=== PATIENT | female | born 1970 | race Caucasian/White ===

== ENCOUNTER 2017-09-30 14:11 | Inpatient (IN) | payer SELFPAY ==
[~2017-09-30] VITALS: Ht 157.5 cm; Wt 98.1 kg
[~2017-09-30 14:11] MED LIST: ALPRAZOLAM0.25 MG PO; AMLODIPINE BESYL5 MG PO; ASPIR 8181 MG PO; ATORVASTATIN CA20 MG PO; BUPROPION HCL75 MG PO; CIPRO500 MG PO; CLONIDINE HCL0.2 MG PO; COUMADIN2 MG PO; DOXYCYCLINE HY100 MG PO; FERROUS SULFAT325 MG PO; IMDUR PO; ISOSORBIDE MONO30 MG PO; METOPROLOL SUCC25 MG PO; NOVOLIN 70100 UNITS/ SQ; PANTOPRAZOLE SO40 MG PO; ULTRAM50 MG PO
--- OUTSIDE RECORDS SUMMARY | 2017-09-30 14:17 | XMS REPORT ---
[facility] Address Unknown Phone Unavailable Care Team Providers Care Armor Senior Sergeant Name Role Phone Unavailable Unavailable Problems This patient has no known problems. Allergies, Adverse Reactions, Alerts This patient has no known allergies or adverse reactions. Medications This patient has no known medications. Encounters Start Date/Time End Date/Time Encounter Type Admission Type Attending [facility] Care Department Encounter ID 2017-11-28 00:00:00 2017-11-28 00:00:00 Outpatient [facility] [id number] 2017-09-16 10:31:59 2017-09-16 10:31:59 Outpatient [facility] [id number] 2017-08-19 11:05:13 2017-08-19 11:05:13 Outpatient [facility] [id number] 2017-07-22 11:07:08 2017-07-22 11:07:08 Outpatient [facility] [id number] 2017-07-08 13:07:55 2017-07-08 13:07:55 Outpatient [facility] [id number] 2017-07-08 00:00:00 2017-07-08 00:00:00 Outpatient [facility] [id number] 2017-07-02 00:00:00 2017-07-02 00:00:00 Outpatient [facility] [id number] 2017-06-27 00:00:00 2017-06-27 00:00:00 Outpatient [facility] [id number] 2017-06-25 11:19:45 2017-06-25 11:19:45 Outpatient [facility] [id number] 2017-06-09 10:27:22 2017-06-09 10:27:22 Outpatient [facility] [id number] 2017-06-05 00:00:00 2017-06-05 00:00:00 Outpatient [facility] [id number] 2017-06-04 12:52:30 2017-06-04 12:52:30 Outpatient [facility] [id number] 2017-06-02 00:00:2017-06-02 00:00:00 Outpatient [facility] [id number] 2017-05-27 10:06:29 2017-05-27 10:06:29 Outpatient [facility] [id number] 2017-05-26 00:00:00 2017-05-26 00:00:00 Outpatient [facility] [id number] 2017-05-21 00:00:00 2017-05-21 00:00:00 Outpatient [facility] [id number] 2017-05-15 11:03:59 2017-05-15 11:03:59 Outpatient [facility] [id number] 2017-05-12 00:00:00 2017-05-12 00:00:00 Outpatient [facility] [id number] 2017-05-06 00:00:00 2017-05-06 00:00:00 Outpatient [facility] [id number] 2017-05-01 13:31:19 2017-05-01 13:31:19 Outpatient [facility] [id number] 2017-04-30 14:04:46 2017-04-30 14:04:46 Outpatient [facility] [id number] 2017-04-30 00:00:00 2017-04-30 00:00:00 Outpatient [facility] [id number] 2017-04-24 15:17:27 2017-04-24 15:17:27 Outpatient [facility] [id number] 2017-04-24 13:31:40 2017-04-24 13:31:40 Outpatient [facility] [id number] 2017-04-18 09:47:47 2017-04-18 09:47:47 Outpatient [facility] [id number] 2017-04-17 00:00:00 2017-04-17 00:00:00 Outpatient [facility] [id number] 2017-04-11 00:00:00 2017-04-11 00:00:00 Outpatient [facility] [id number] 2017-04-09 00:00:00 2017-04-09 00:00:00 Outpatient [facility] [id number] 2017-04-07 12:15:10 2017-04-07 12:15:10 Outpatient [facility] [id number] 2017-04-04 13:13:11 2017-04-04 13:13:11 Outpatient [facility] [id number] 2017-04-04 11:19:54 2017-04-04 11:19:54 Outpatient [facility] [id number] 2017-04-02 00:00:00 2017-04-02 00:00:00 Outpatient [facility] [id number] 2017-04-01 00:00:00 2017-04-01 00:00:00 Outpatient [facility] [id number] 2017-04-01 00:00:00 2017-04-01 00:00:00 Outpatient [facility] [id number] 2017-03-31 13:14:34 2017-03-31 13:14:34 Outpatient [facility] [id number] 2017-03-31 00:00:00 2017-03-31 00:00:00 Outpatient [facility] [id number] 2017-03-25 10:04:20 2017-03-25 10:04:20 Outpatient [facility] [id number] 2017-03-25 08:51:34 2017-03-25 08:51:34 Outpatient [facility] [id number] 2017-03-19 14:53:43 2017-03-19 14:53:43 Outpatient [facility] [id number] 2017-03-19 13:35:41 2017-03-19 13:35:41 Outpatient [facility] [id number] 2017-03-19 13:35:35 2017-03-19 13:35:35 Outpatient [facility] [id number] 2017-03-14 00:00:00 2017-03-14 00:00:00 Outpatient [facility] [id number] 2017-03-12 00:00:00 2017-03-12 00:00:00 Outpatient [facility] [id number] 2017-03-12 00:00:00 2017-03-12 00:00:00 Outpatient [facility] [id number] 2017-03-10 10:30:12 2017-03-10 10:30:12 Outpatient [facility] [id number] 2017-03-07 16:12:41 2017-03-07 16:12:41 Outpatient [facility] [id number] 2017-03-05 00:00:00 2017-03-05 00:00:00 Outpatient [facility] [id number] 2017-02-26 00:00:00 2017-02-26 00:00:00 Outpatient [facility] [id number] 2017-02-25 00:00:00 2017-02-25 00:00:00 Outpatient [facility] [id number] 2017-02-24 00:00:00 2017-02-24 00:00:00 Outpatient [facility] [id number] 2017-02-12 00:00:00 2017-02-12 00:00:00 Outpatient [facility] [id number] 2017-02-11 00:00:00 2017-02-11 00:00:00 Outpatient [facility] [id number] 2017-02-06 00:00:00 2017-02-06 00:00:00 Outpatient [facility] [id number] 2017-01-29 00:00:00 2017-01-29 00:00:00 Outpatient [facility] [id number] 2017-01-29 00:00:00 2017-01-29 00:00:00 Outpatient [facility] [id number] 2017-01-10 00:00:00 2017-01-10 00:00:00 Outpatient [facility] [id number] 2017-01-10 00:00:00 2017-01-10 00:00:00 Outpatient [facility] [id number] 2017-01-08 16:25:20 2017-01-08 16:25:20 Outpatient [facility] [id number] 2017-01-08 14:32:39 2017-01-08 14:32:39 Outpatient [facility] [id number] 2017-01-01 16:23:10 2017-01-01 16:23:10 Outpatient [facility] [id number]
[2017-09-30 16:36] LABS: BASOPHILS % 0.3 % (0.0-1.0); EOSINOPHILS # (AUTO) 0.1 (0.0-0.4); EOSINOPHILS % 0.5 % (0.0-6.0); HEMATOCRIT 33.6 % (34.2-44.1); LYMPHOCYTES # (AUTO) 0.6 (1.0-3.2); LYMPHOCYTES % 5.3 % (18.0-39.1); MEAN CORPUSCULAR HEMOGLOBIN 20.2 pg (28-32); MEAN CORPUSCULAR HGB CONC 29.8 g/dL (31-35); MEAN CORPUSCULAR VOLUME 67.7 fL (81-99); MONOCYTES # (AUTO) 0.5 (0.2-0.8); MONOCYTES % 4.5 % (4.4-11.3); NEUTROPHILS % 88.9 % (38.7-80.0); PLATELET COUNT 435 x10e3/uL (140-360); RED BLOOD COUNT 4.96 x10e6/uL (3.6-5.1); RED CELL DISTRIBUTION WIDTH 24.6 % (11.7-14.4)
[2017-09-30 16:41] LABS: INR 2.17; PROTHROMBIN TIME 22.7 seconds (11.9-14.5)
[2017-09-30 16:42] LABS: PARTIAL THROMBOPLASTIN TIME 51.6 seconds (23.8-35.5)
[2017-09-30 16:50] LABS: ALBUMIN 2.5 g/dL (3.5-5.0); ALBUMIN/GLOBULIN RATIO 0.5 (0.8-2.0); ALKALINE PHOSPHATASE 281 IU/L (40-150); ANION GAP 14.1 mmol/L (8-16); BLOOD UREA NITROGEN 36 mg/dL (7-26); BUN/CREATININE RATIO 12 (6-25); CARBON DIOXIDE 19 mmol/L (22-29); CHLORIDE 104 mmol/L (98-107); CREATINE KINASE 100 IU/L (29-168); CREATININE, SERUM 2.89 mg/dL (0.57-1.11); EST GLOMERULAR FILTRATION RATE 17 ML/MIN (60-); GLUCOSE 342 mg/dL (74-118); POTASSIUM 4.1 mmol/L (3.5-5.1); SODIUM 133 mmol/L (136-145)
[2017-09-30 16:51] LABS: ALANINE AMINOTRANSFERASE < 6 IU/L (0-55)
[2017-09-30 17:36] LABS: ANISOCYTOSIS SLIG; HYPOCHROMASIA SLIGHT; LYMPHOCYTES % (MANUAL) 6 % (19-48); MONOCYTES % (MANUAL) 1 % (3.4-9.0); NEUTROPHILS % (MANUAL) 93 % (40-74); PLATELET ESTIMATE SLIGHTLY INCREASED; PLATELET MORPHOLOGY COMMENT NORMAL; POIKILOCYTOSIS SLIGHT; RBC MORPHOLOGY COMMENT NORMAL
--- NOTE | 2017-09-30 17:50 | Diagnostic Imaging Report ---
PROCEDURE: X-RAY CHEST, TWO VIEWS COMPARISON: Patients [facility], DX, CHEST 2 VIEWS, 12/12/2016, 11:34. INDICATIONS: SHORTNESS OF BREATH, CHEST PAIN FINDINGS: LUNGS: Right basilar infiltrate has developed. The lungs are diffusely hyperinflated consistent with COPD. The pulmonary vasculature is prominent but stable. PLEURA: No large effusions or pneumothorax. Small right pleural effusion is suspected HEART \T\ MEDIASTINUM: The heart mildly enlarged. No hilar lymphadenopathy. BONES \T\ SOFT TISSUES: The bones are diffusely demineralized with degenerative changes of the thoracic spine. No focal osseous lesions. There is new inferior subluxation of the right humeral head. CONCLUSION: 1. Right lower lobe infiltrate suggestive of pneumonia. 2. Pulmonary hyperinflation consistent with COPD. 3. Mild cardiomegaly and chronic vascular congestion. 4. Inferior subluxation of the right humeral head may be result of rotator cuff pathology or joint effusion. Dictated by: Pascale Talavera M.D. on 09/30/2017 at 17:51 Electronically approved by: Pascale Talavera M.D. on 09/30/2017 at 17:51
[2017-09-30] MEDS ORDERED: VANCOMYCIN HCL 1GM/NS 250 ML BAG IV SCH (18:30)
[2017-09-30] MEDS ORDERED: DEXTROSE 50% SYRINGE 50 ML IV PRN (18:30)
[2017-09-30] MEDS: ALBUTEROL SULF 0.083% NEB SOLN 3 ML NEB NEB SCH ×2 (20:00→23:00)
[2017-09-30] MEDS: IPRATROPIUM BROMIDE 0.02% 2.5 ML NEB NEB SCH (20:00)
[2017-09-30] MEDS: FUROSEMIDE INJ 10 MG/ML 4 ML VIAL IV SCH (20:03)
[2017-09-30] MEDS: PIPERACILLIN/TAZO 2.25 GM 50 ML IV SCH (20:03)
[2017-09-30] MEDS: VANCOMYCIN 1GM/NS 250 ML 250 ML IV SCH (20:42)
[2017-09-30] MEDS ORDERED: INSULIN REGULAR, HUMAN 100 UNIT/1 ML 3ML VIAL SQ SCH (21:00)
[2017-10-01] VITALS (8 sets, daily range): BP systolic 123–168; BP diastolic 62–108
[2017-10-01] MEDS ORDERED: INSULIN REGULAR, HUMAN 100 UNIT/1 ML 3ML VIAL SQ ONE (00:30)
[2017-10-01] MEDS ORDERED: INSULIN DETEMIR 100 UNIT/ML PEN SQ ONE (00:30)
[2017-10-01] MEDS: PIPERACILLIN/TAZO 2.25 GM 50 ML IV SCH ×3 (01:50→18:49)
[2017-10-01] MEDS ORDERED: SODIUM CHLORIDE 0.9% 250ML 250 ML ONE (01:58)
[2017-10-01] MEDS: ALBUTEROL SULF 0.083% NEB SOLN 3 ML NEB NEB SCH ×6 (03:25→23:00)
[2017-10-01] MEDS: IPRATROPIUM BROMIDE 0.02% 2.5 ML NEB NEB SCH ×4 (03:25→19:00)
[2017-10-01 06:08] LABS: BASOPHILS % 0.4 % (0.0-1.0); EOSINOPHILS # (AUTO) 0.1 (0.0-0.4); EOSINOPHILS % 0.7 % (0.0-6.0); HEMATOCRIT 26.5 % (34.2-44.1); LYMPHOCYTES % 10.7 % (18.0-39.1); MEAN CORPUSCULAR HEMOGLOBIN 20.8 pg (28-32); MEAN CORPUSCULAR HGB CONC 30.2 g/dL (31-35); MEAN CORPUSCULAR VOLUME 68.8 fL (81-99); MONOCYTES # (AUTO) 0.7 (0.2-0.8); MONOCYTES % 7.4 % (4.4-11.3); NEUTROPHILS # (AUTO) 7.8 (2.1-6.9); NEUTROPHILS % 80.4 % (38.7-80.0); PLATELET COUNT 334 x10e3/uL (140-360); RED BLOOD COUNT 3.85 x10e6/uL (3.6-5.1); RED CELL DISTRIBUTION WIDTH 24.3 % (11.7-14.4)
[2017-10-01 06:31] LABS: CALCIUM 8.5 mg/dL (8.4-10.2); CREATININE, SERUM 2.63 mg/dL (0.57-1.11)
[2017-10-01 07:52] LABS: ANISOCYTOSIS MODE; HYPOCHROMASIA SLIGHT; PLATELET ESTIMATE ADEQUATE; PLATELET MORPHOLOGY COMMENT NORMAL; POIKILOCYTOSIS SLIGHT; RBC MORPHOLOGY COMMENT NORMAL
[2017-10-01 07:53] LABS: ELLIPTOCYTE, RBC SLIGHT
[2017-10-01] MEDS: FUROSEMIDE INJ 10 MG/ML 4 ML VIAL IV SCH ×2 (09:04→17:09)
[2017-10-01] MEDS: INSULIN REGULAR, HUMAN 100 UNIT/1 ML 3ML VIAL SQ SCH ×4 (09:05→21:17)
[2017-10-01 10:16] LABS: CREATINE KINASE MB 1.6 ng/mL (0-5.0)
[2017-10-01] MEDS: SODIUM CHLORIDE FLUSH 10 ML SYR INJ PRN ×2 (11:06→12:00)
[2017-10-01] MEDS: VANCOMYCIN 1GM/NS 250 ML 250 ML IV SCH (21:12)
[2017-10-01] MEDS: CLONIDINE HCL 0.2 MG TAB PO SCH (21:12)
[2017-10-01] MEDS: ATORVASTATIN 40 MG TAB PO SCH (21:13)
[2017-10-02] VITALS (8 sets, daily range): BP systolic 110–168; BP diastolic 59–75
--- NOTE | 2017-10-02 00:30 | Consultation ---
DATE OF CONSULTATION: October 01, 2017 CHIEF COMPLAINT: Pneumonia. HISTORY OF PRESENT ILLNESS: The patient is a 47-year-old female known to me from recent hospitalization at [facility] for left buttock ulcer infection, which has been debrided and improving. The patient was admitted to [facility] for pneumonia. She denies fever, chills, admits to cough. Consultation requested for followup wound care of the buttock wound. PAST MEDICAL HISTORY: Significant for diabetes, hypertension, hyperlipidemia. SURGICAL HISTORY: Positive for , recent debridement of left buttock abscess. SOCIAL HABITS: The patient is a smoker, but denies alcohol abuse. REVIEW OF SYSTEMS: No diarrhea, no fever, chills. Positive cough. EXAM VITAL SIGNS: Stable. Afebrile. GENERAL: Patient is awake, alert, in mild discomfort. HEENT: Sclerae anicteric. NECK: Supple. LUNGS: Clear. HEART: Regular rate and rhythm. No murmurs. ABDOMEN: Soft, nontender. Buttock wound revealed 5- x 4-cm left buttock wound near the anus, which clean wound base. LABORATORY DATA: White cell count of 9, with the hemoglobin of 8, creatinine is 2.6. Chest x-ray shows right lower lobe pneumonia. ASSESSMENT: Left buttock wound, which is clean. PLAN: Wound care with Santyl dressing daily. Will follow patient with you. Job#: [id number] [id number]
[2017-10-02] MEDS: IPRATROPIUM BROMIDE 0.02% 2.5 ML NEB NEB SCH ×4 (01:00→23:45)
[2017-10-02] MEDS: PIPERACILLIN/TAZO 2.25 GM 50 ML IV SCH ×3 (02:00→18:33)
[2017-10-02] MEDS: ALBUTEROL SULF 0.083% NEB SOLN 3 ML NEB NEB SCH ×4 (03:00→23:45)
[2017-10-02 06:14] LABS: BASOPHILS % 0.4 % (0.0-1.0); EOSINOPHILS # (AUTO) 0.2 (0.0-0.4); EOSINOPHILS % 2.2 % (0.0-6.0); HEMATOCRIT 26.5 % (34.2-44.1); LYMPHOCYTES # (AUTO) 1.2 (1.0-3.2); LYMPHOCYTES % 13.6 % (18.0-39.1); MEAN CORPUSCULAR HEMOGLOBIN 20.4 pg (28-32); MEAN CORPUSCULAR HGB CONC 29.8 g/dL (31-35); MEAN CORPUSCULAR VOLUME 68.3 fL (81-99); MONOCYTES # (AUTO) 0.6 (0.2-0.8); MONOCYTES % 6.7 % (4.4-11.3); NEUTROPHILS # (AUTO) 6.6 (2.1-6.9); NEUTROPHILS % 76.7 % (38.7-80.0); PLATELET COUNT 326 x10e3/uL (140-360); RED BLOOD COUNT 3.88 x10e6/uL (3.6-5.1); RED CELL DISTRIBUTION WIDTH 24.2 % (11.7-14.4)
[2017-10-02 06:19] LABS: HEMOGLOBIN 7.9 g/dL (12.0-16.0)
[2017-10-02 06:43] LABS: ANION GAP 11.9 mmol/L (8-16); CALCIUM 8.2 mg/dL (8.4-10.2); CREATININE, SERUM 2.43 mg/dL (0.57-1.11); POTASSIUM 3.9 mmol/L (3.5-5.1)
[2017-10-02] MEDS: FUROSEMIDE INJ 10 MG/ML 4 ML VIAL IV SCH ×3 (06:46→18:59)
[2017-10-02 08:06] LABS: ANISOCYTOSIS MODERATE
[2017-10-02 08:07] LABS: HYPOCHROMASIA MODERATE; PLATELET ESTIMATE ADEQUATE; PLATELET MORPHOLOGY COMMENT NORMAL; RBC MORPHOLOGY COMMENT NORMAL
[2017-10-02] MEDS: INSULIN REGULAR, HUMAN 100 UNIT/1 ML 3ML VIAL SQ SCH ×4 (08:17→21:00)
[2017-10-02] MEDS: HUMULIN 70/30 VIAL SQ SCH ×2 (08:17→17:24)
[2017-10-02] MEDS ORDERED: ACETAMINOPHEN 325 MG TAB PO PRN (08:45)
[2017-10-02] MEDS ORDERED: ISOSORBIDE MONONITRATE 30 MG TAB CR PO SCH (09:00)
[2017-10-02] MEDS: ASPIRIN 81 MG CHEW TAB PO SCH (09:08)
[2017-10-02] MEDS: AMLODIPINE BESYLATE 5 MG TAB PO SCH ×2 (09:09→17:54)
[2017-10-02] MEDS: METOPROLOL SUCCINATE 25 MG TAB XL PO SCH ×2 (09:09→17:00)
[2017-10-02] MEDS: CLONIDINE HCL 0.2 MG TAB PO SCH ×3 (09:09→21:00)
[2017-10-02 09:10] LABS: INR 1.4; PROTHROMBIN TIME 16.1 seconds (11.9-14.5)
[2017-10-02] MEDS: ALPRAZOLAM 0.25 MG TAB PO SCH ×2 (09:10→17:47)
[2017-10-02] MEDS: ISOSORBIDE MONONITRATE 30 MG TAB CR PO SCH ×2 (09:10→17:53)
[2017-10-02] MEDS: COLLAGENASE OINTMENT 30 GM TUBE TP SCH (09:10)
[2017-10-02] MEDS: PANTOPRAZOLE SOD 40 MG TABEC PO SCH (09:10)
[2017-10-02] MEDS: FERROUS SULFATE 325 MG TAB PO SCH ×2 (09:11→17:47)
[2017-10-02] MEDS: BUPROPION HCL 75 MG TAB PO SCH ×2 (09:15→18:02)
[2017-10-02] MEDS: SODIUM CHLORIDE FLUSH 10 ML SYR INJ PRN (09:48)
[2017-10-02] MEDS: TRAMADOL HCL 50 MG TAB PO PRN (09:48)
[2017-10-02] MEDS ORDERED: FAMOTIDINE 20 MG/2 ML VIAL IV ONE (11:30)
[2017-10-02] MEDS ORDERED: SODIUM CHLORIDE 0.9% 250ML 250 ML IV ONE (11:30)
[2017-10-02 11:40] LABS: % IRON SATURATION 5 % (15-50); IRON 15 ug/dL (50-170); TOTAL IRON BINDING CAPACITY 281 ug/dL (261-478); TRANSFERRIN 201 mg/dL (180-382)
--- NOTE | 2017-10-02 14:30 | Diagnostic Imaging Report ---
PROCEDURE: X-RAY CHEST, TWO VIEWS COMPARISON: 09/30/2017. INDICATIONS: PNA FINDINGS: Lungs remain well-inflated. Unchanged right lower lobe consolidation best seen on the lateral radiograph. Stable cardiomediastinal contour. No acute osseous abnormality. CONCLUSION: No appreciable interval change in right lower lobe pneumonia relative to 09/30/2017. Followup chest radiograph in 8 weeks after appropriate treatment is suggested to document resolution. Dictated by: Jakub Ta M.D. on 10/02/2017 at 14:30 Electronically approved by: Jakub Ta M.D. on 10/02/2017 at 14:30
[2017-10-02] MEDS ORDERED: SODIUM CHLORIDE 0.9% 250ML 250 ML ONE (20:18)
[2017-10-03] VITALS: BP 132/59
[2017-10-03] MEDS: TRAMADOL HCL 50 MG TAB PO PRN (00:01)
[2017-10-03] MEDS ORDERED: SODIUM CHLORIDE 0.9% 250ML 250 ML ONE (01:20)
[2017-10-03] MEDS: ATORVASTATIN 40 MG TAB PO SCH (01:32)
[2017-10-03] MEDS: PIPERACILLIN/TAZO 2.25 GM 50 ML IV SCH ×2 (02:45→09:29)
[2017-10-03] MEDS: ALBUTEROL SULF 0.083% NEB SOLN 3 ML NEB NEB SCH ×4 (03:00→15:34)
[2017-10-03 04:00] VITALS: BP 121/58
[2017-10-03] MEDS: VANCOMYCIN 1GM/NS 250 ML 250 ML IV SCH (04:46)
[2017-10-03] MEDS: FUROSEMIDE INJ 10 MG/ML 4 ML VIAL IV SCH (06:36)
[2017-10-03 06:48] LABS: BASOPHILS # (AUTO) 0.1 (0.0-0.1); BASOPHILS % 0.6 % (0.0-1.0); EOSINOPHILS # (AUTO) 0.2 (0.0-0.4); EOSINOPHILS % 2.8 % (0.0-6.0); HEMATOCRIT 29.2 % (34.2-44.1); LYMPHOCYTES # (AUTO) 1.1 (1.0-3.2); LYMPHOCYTES % 13.2 % (18.0-39.1); MEAN CORPUSCULAR HEMOGLOBIN 21.4 pg (28-32); MEAN CORPUSCULAR HGB CONC 30.8 g/dL (31-35); MEAN CORPUSCULAR VOLUME 69.5 fL (81-99); MONOCYTES # (AUTO) 0.7 (0.2-0.8); MONOCYTES % 8.9 % (4.4-11.3); NEUTROPHILS # (AUTO) 6.1 (2.1-6.9); NEUTROPHILS % 73.9 % (38.7-80.0); PLATELET COUNT 274 x10e3/uL (140-360); RED CELL DISTRIBUTION WIDTH 24.9 % (11.7-14.4)
[2017-10-03 07:17] LABS: ANION GAP 12.1 mmol/L (8-16); CALCIUM 8.1 mg/dL (8.4-10.2); CREATININE, SERUM 2.42 mg/dL (0.57-1.11); POTASSIUM 4.1 mmol/L (3.5-5.1)
[2017-10-03 07:25] VITALS: BP 146/74
[2017-10-03] MEDS: HUMULIN 70/30 VIAL SQ SCH (07:30)
[2017-10-03] MEDS: IPRATROPIUM BROMIDE 0.02% 2.5 ML NEB NEB SCH ×2 (07:31→15:34)
[2017-10-03 07:42] VITALS: BP 146/74
[2017-10-03] MEDS: INSULIN REGULAR, HUMAN 100 UNIT/1 ML 3ML VIAL SQ SCH ×2 (09:00→12:55)
[2017-10-03 09:20] LABS: EOSINOPHILS % (MANUAL) 4 % (0-7); LYMPHOCYTES % (MANUAL) 7 % (19-48); MONOCYTES % (MANUAL) 4 % (3.4-9.0); NEUTROPHILS % (MANUAL) 85 % (40-74)
[2017-10-03] MEDS: ASPIRIN 81 MG CHEW TAB PO SCH (09:20)
[2017-10-03] MEDS: FERROUS SULFATE 325 MG TAB PO SCH (09:21)
[2017-10-03] MEDS: BUPROPION HCL 75 MG TAB PO SCH (09:21)
[2017-10-03] MEDS: METOPROLOL SUCCINATE 25 MG TAB XL PO SCH (09:21)
[2017-10-03] MEDS: CLONIDINE HCL 0.2 MG TAB PO SCH ×2 (09:21→15:00)
[2017-10-03] MEDS: AMLODIPINE BESYLATE 5 MG TAB PO SCH (09:21)
[2017-10-03] MEDS: PANTOPRAZOLE SOD 40 MG TABEC PO SCH (09:21)
[2017-10-03] MEDS: ALPRAZOLAM 0.25 MG TAB PO SCH (09:21)
[2017-10-03] MEDS: ISOSORBIDE MONONITRATE 30 MG TAB CR PO SCH (09:21)
[2017-10-03 12:28] VITALS: BP 130/62
[2017-10-03] MEDS ORDERED: LASIX40 MG PO (13:48)
[2017-10-03] MEDS ORDERED: ALDACTONE25 MG (13:51)
[2017-10-03] MEDS: COLLAGENASE OINTMENT 30 GM TUBE TP SCH (15:15)
== END 2017-10-03 16:26 | disposition home or self-care (01) | DRG 194 ==
LOC: ER 14:15 → ERHOLD 18:45 → IMCU 22:32 → ERHOLD 22:32 → IMCU 10-01 01:40 → MED/SURG3 10-02 20:42
PROC: 30233N1 Transfusion of Nonautologous Red Blood Cells into Peripheral Vein, Percutaneous Approach (ICD-10-PCS; principal; 2017-10-02)
DX: J18.9 Pneumonia, unspecified organism (principal); I13.0 Hypertensive heart and chronic kidney disease with heart failure and stage 1 through stage 4 chronic kidney disease, or unspecified chronic kidney disease; E11.22 Type 2 diabetes mellitus with diabetic chronic kidney disease; I50.9 Heart failure, unspecified; N18.3 Chronic kidney disease, stage 3 (moderate); S31.829A Unspecified open wound of left buttock, initial encounter; D64.9 Anemia, unspecified; F17.210 Nicotine dependence, cigarettes, uncomplicated; Z79.4 Long term (current) use of insulin
CPT/HCPCS: 36415; 71046; 80048; 80053; 82270; 82550; 82553; 82948; 83540; 83880; 84466; 84484; 85025; 85610; 85730; 86850; 86900; 86920; 87040; 87071; 87205; 93005; 94640; 96372; 99284; J1940; J2543; J3370; J7050; P9016

== ENCOUNTER 2017-10-11 11:46 | Emergency (ER) | payer SELFPAY ==
[~2017-10-11] VITALS: Ht 157.5 cm; Wt 84.8 kg
[~2017-10-11 11:46] MED LIST changes: +ALDACTONE25 MG; +LASIX40 MG PO
--- OUTSIDE RECORDS SUMMARY | 2017-10-11 11:49 | XMS REPORT | Continuity of Care Document ---
Author Author [facility] Organization [facility] Address [address] [place] [place] [address] Phone Unavailable Care Team Providers Care Bpo Specialist Name Role Phone NO, PCP PCP Unavailable Insurance Providers Guarantor Carolee Rodriguez Address [address] [place] [address] Email [email or web address] [facility] Policy Number [id number] Subscriber's Name MichaelCarolee Relationship 18 Self / Same As Patient Effective Date 16 Expiration Date 16 Advance Directives Directive Response Recorded Date/Time Does the patient have an advance directive? No 10/01/17 1:52am If yes, is advance directive on file with [facility]? No 10/01/17 1:52am If not on file with [facility] will patient provide a copy? No 10/01/17 1:52am Do you have a Directive to Physician? No 09/30/17 5:45pm Do you have a Medical Power of Poly Operator? No 09/30/17 5:45pm Do you have an out of hospital Do Not Resuscitate Order? No 09/30/17 5:45pm Do you have any special needs we should be aware of? No 09/30/17 5:45pm Do you have a support person here with you today? Yes 09/30/17 5:45pm Did patient receive Notice of Privacy Practices? Yes 09/30/17 5:45pm Did patient receive patient rights and responsibilities? Yes 09/30/17 5:45pm Problems Medical Problem Onset Date Status Anemia Unknown Cellulitis Unknown Pneumonia Unknown Medications Current Home Medications Medication Dose Units Route Directions Days Qty Instructions Start Date Alprazolam 0.25 Mg Tablet 0.125 Mg Oral Twice A Day 90 Tab Amlodipine Besylate 5 Mg Tablet 5 Mg Oral Twice A Day 30 Tab Aspirin (Aspir 81) 81 Mg Tablet.dr 81 Mg Oral Daily Atorvastatin Calcium 20 Mg Tablet 80 Mg Oral Bedtime 30 Tab Bupropion Hcl 75 Mg Tablet 75 Mg Oral Twice A Day 30 Tab Clonidine Hcl 0.2 Mg Tablet 0.2 Mg Oral Three Times A Day Ferrous Sulfate 325 Mg Tablet 325 Mg Oral Twice A Day Furosemide (Lasix) 40 Mg Tablet 40 Mg Oral Daily 30 Tab Imdur 30 Mg Oral Twice A Day Insulin Human Isophan/Regular (Novolin 70-30 100 Unit/Ml Vial) 100 Units/Ml Ml 30 Units Sub-Q Twice Daily Before Meals Isosorbide Mononitrate (Isosorbide Mononitrate Er) 30 Mg Tab.er.24h 30 Mg Oral Twice A Day 30 Tab Metoprolol Succinate 25 Mg Tab.er.24h 75 Mg Oral Twice A Day Pantoprazole Sodium (Protonix) 40 Mg Tablet.dr 40 Mg Oral Daily Spironolactone (Aldactone) 25 Mg Tablet Tramadol Hcl (Ultram) 50 Mg Tablet 50 Mg Oral Every 8 Hours as needed for Pain Warfarin Sodium (Coumadin) 2 Mg Tablet 4 Mg Oral Today At 5:00PM 7 Tab Past Home Medications Medication Directions Ordered Status Ciprofloxacin Hcl (Cipro) 500 Mg Tablet, 500 Mg Oral Every 12 Hours Discontinued Doxycycline Hyclate 100 Mg Capsule, 100 Mg Oral Every 12 Hours Discontinued Social History Social History Problem Response Recorded Date/Time Onset Date Status Hx Psychiatric Problems No 10/01/2017 1:52am Not Applicable Not Applicable Hx Eating Disorder No 10/01/2017 1:52am Not Applicable Not Applicable Hx Substance Use Disorder No 10/01/2017 1:52am Not Applicable Not Applicable Hx Depression Yes 10/01/2017 1:52am Not Applicable Not Applicable Hx Alcohol Use No 10/01/2017 1:52am Not Applicable Not Applicable Hx Substance Use Treatment No 10/01/2017 1:52am Not Applicable Not Applicable Hx Physical Abuse No 10/01/2017 1:52am Not Applicable Not Applicable Smoking Status Start Date Stop Date Former smoker Hospital Discharge Instructions No hospital discharge instruction information available. Plan of Care Discharge Date 10/03/17 4:26pm Disposition HOME, SELF-CARE Instructions/Education Provided Rash - Nonspecific Prescriptions See Medication Section Additional Instructions/Education OKAY FOR PATIENT TO SHOWER. FOLLOW UP WITH DR. SALINAS IN 1 TO 2 WEEKS. FOLLOW UP WITH PRIMARY DOCTOR AND RECREATION LEADER DIRECTED. Functional Status Query Response Date Recorded Assistive Devices Sang Walker October 01, 2017 1:52am Ambulation Ability Moderate Assistance October 01, 2017 1:52am Toileting Ability Minimum Assistance October 03, 2017 1:42pm Allergies, Adverse Reactions, Alerts No known allergies. Immunizations No immunization information available. Vital Signs Acute Vital Signs Vital Response Date/Time Temperature (Fahrenheit) 96.5 degrees F (97.6 - 99.5) 10/03/2017 12:28pm Pulse Pulse Rate (adult) 62 bpm (60 - 90) 10/03/2017 12:28pm Respiratory Rate 18 bpm (12 - 24) 10/03/2017 12:28pm Blood Pressure 130/62 mm Hg 10/03/2017 12:28pm Height 5 ft 2 in 09/30/2017 2:15pm Weight 216.38 lb 10/02/2017 9:56pm Body Mass Index 39.6 kg/m^2 10/03/2017 12:48am Results Laboratory Results Test Name Result Units Flags Reference Collection Date/Time Result Date/ Time Comments Urine Color RED H YELLOW 12/12/2016 9:00am 12/12/2016 9:09am Urine Clarity SL CLOUDY CLEAR 12/12/2016 9:00am 12/12/2016 9:09am Urine Specific [place] 1.015 1.010-1.025 12/12/2016 9:00am 2016 9:09am Urine pH 6 5 - 7 12/12/2016 9:00am 12/12/2016 9:09am Urine Leukocyte Esterase NEGATIVE NEGATIVE 12/12/2016 9:00am 2016 9:09am Urine Nitrite NEGATIVE NEGATIVE 12/12/2016 9:00am 12/12/2016 9:09am Urine Protein 2+ H NEGATIVE 12/12/2016 9:00am 12/12/2016 9:09am Urine Glucose (UA) 1+ H NEGATIVE 12/12/2016 9:00am 12/12/2016 9:09am Urine Ketones NEGATIVE NEGATIVE 12/12/2016 9:00am 12/12/2016 9:09am Urine Urobilinogen 0.2 mg/dL 0.2 - 1 12/12/2016 9:00am 12/12/2016 9: 09am Urine Bilirubin NEGATIVE NEGATIVE 12/12/2016 9:00am 12/12/2016 9: 09am Urine Blood 4+ H NEGATIVE 12/12/2016 9:00am 12/12/2016 9:09am Urine WBC NONE /HPF 0-12/12/2016 9:00am 12/12/2016 9:29am Urine RBC >50 /HPF H 0-5 12/12/2016 9:00am 12/12/2016 9:29am Urine Bacteria NONE /HPF NONE 12/12/2016 9:00am 12/12/2016 9:29am Urine Epithelial Cells RARE /LPF NONE 12/12/2016 9:00am 12/12/2016 9: 29am Vancomycin Level Trough 13.0 ug/mL *H 5.0-10.0 12/17/2016 7:25pm 2016 9:54pm Results called to PEPE OLIVEROS RN at 2154 on 12/17/16 by Mae Bowens. RB OK. White Blood Count 8.24 x10e3/uL 4.8-10.8 10/03/2017 6:30am 10/03/2017 7 :10am Red Blood Count 4.20 x10e6/uL 3.6-5.1 10/03/2017 6:30am 10/03/2017 7: 10am Hemoglobin 9.0 g/dL L 12.0-16.0 10/03/2017 6:30am 10/03/2017 7:10am Hematocrit 29.2 % L 34.2-44.1 10/03/2017 6:30am 10/03/2017 7:10am Mean Corpuscular Volume 69.5 fL L 81-99 10/03/2017 6:30am 10/03/2017 7: 10am Mean Corpuscular Hemoglobin 21.4 pg L 28-32 10/03/2017 6:2017 7:10am Mean Corpuscular Hemoglobin Concent 30.8 g/dL L 31-35 10/03/2017 6:10/03/2017 7:10am Red Cell Distribution Width 24.9 % H 11.7-14.4 10/03/2017 6:2017 7:10am Platelet Count 274 x10e3/uL 140-360 10/03/2017 6:10/03/2017 7: 10am Neutrophils (%) (Auto) 73.9 % 38.7-80.0 10/03/2017 6:10/03/2017 7: 10am Lymphocytes (%) (Auto) 13.2 % L 18.0-39.1 10/03/2017 6:10/03/2017 7 :10am Monocytes (%) (Auto) 8.9 % 4.4-11.3 10/03/2017 6:10/03/2017 7: 10am Eosinophils (%) (Auto) 2.8 % 0.0-6.0 10/03/2017 6:10/03/2017 7: 10am Basophils (%) (Auto) 0.6 % 0.0-1.0 10/03/2017 6:10/03/2017 7:10am IM GRANULOCYTES % 0.6 % 0.0-1.0 10/03/2017 6:10/03/2017 7:10am Neutrophils # (Auto) 6.1 2.1-6.9 10/03/2017 6:10/03/2017 7:10am Lymphocytes # (Auto) 1.1 1.0-3.2 10/03/2017 6:10/03/2017 7:10am Monocytes # (Auto) 0.7 0.2-0.8 10/03/2017 6:10/03/2017 7:10am Eosinophils # (Auto) 0.2 0.0-0.4 10/03/2017 6:10/03/2017 7:10am Basophils # (Auto) 0.1 0.0-0.1 10/03/2017 6:10/03/2017 7:10am Absolute Immature Granulocyte (auto 0.05 x10e3/uL 0-0.1 10/03/2017 6: 30am 10/03/2017 7:10am Differential Total Cells Counted 100 10/03/2017 6:30am 10/03/2017 9 :21am Neutrophils % (Manual) 85 % H 40-74 10/03/2017 6:30am 10/03/2017 9:21am Lymphocytes % (Manual) 7 % L 19-48 10/03/2017 6:30am 10/03/2017 9:21am Monocytes % (Manual) 4 % 3.4-9.0 10/03/2017 6:30am 10/03/2017 9:21am Eosinophils % (Manual) 4 % 0-7 10/03/2017 6:30am 10/03/2017 9:21am Platelet Estimate ADEQUATE 10/02/2017 5:50am 10/02/2017 8:07am Platelet Morphology Comment NORMAL 10/02/2017 5:50am 10/02/2017 8: 07am Hypochromasia MODERATE 10/02/2017 5:50am 10/02/2017 8:07am Poikilocytosis SLIGHT 10/01/2017 5:45am 10/01/2017 7:53am Anisocytosis MODERATE 10/02/2017 5:50am 10/02/2017 8:07am Elliptocytes SLIGHT 10/01/2017 5:45am 10/01/2017 7:53am Red Cell Morphology Comment NORMAL 10/02/2017 5:50am 10/02/2017 8: 07am Prothrombin Time 16.1 seconds H 11.9-14.5 10/02/2017 5:50am 10/02/2017 9 :13am Prothromb Time International Ratio 1.40 10/02/2017 5:50am 2017 9:13am Oral Anticoagulant Therapy INR Values: 1. Low Intensity Therapy 1.5 - 2.0 2. Moderate Intensity Therapy 2.0 - 3.0 3. High Intensity Therapy(1) 2.5 - 3.5 4. High Intensity Therapy(2) 3.0 - 4.0 5. Panic Value INR > 5.0 Activated Partial Thromboplast Time 51.6 seconds H 23.8-35.5 09/30/2017 3 :45pm 09/30/2017 4:44pm Sodium Level 131 mmol/L L 136-145 10/03/2017 6:30am 10/03/2017 7:22am Potassium Level 4.1 mmol/L 3.5-5.1 10/03/2017 6:30am 10/03/2017 7:22am Chloride Level 102 mmol/L 98-107 10/03/2017 6:30am 10/03/2017 7:22am Carbon Dioxide Level 21 mmol/L L 22-29 10/03/2017 6:30am 10/03/2017 7: 22am Anion Gap 12.1 mmol/L 8-16 10/03/2017 6:30am 10/03/2017 7:22am Blood Urea Nitrogen 41 mg/dL H 7-26 10/03/2017 6:30am 10/03/2017 7:22am Creatinine 2.42 mg/dL H 0.57-1.11 10/03/2017 6:30am 10/03/2017 7:22am BUN/Creatinine Ratio 17 6-25 10/03/2017 6:30am 10/03/2017 7:22am Estimat Glomerular Filtration Rate 21 ML/MIN L 60- 10/03/2017 6:30am 11/2017 7:22am Ranges were taken from the National Kidney Disease Education Program and the National Kid[employer] Foundation literature. Reference ranges: 60 or greater: Normal 16-59 (for 3 consecutive months): Chronic kidney disease 15 or less: Kidney failure Glucose Level 140 mg/dL H 74-118 10/03/2017 6:30am 10/03/2017 7:22am Calcium Level 8.1 mg/dL L 8.4-10.2 10/03/2017 6:30am 10/03/2017 7:22am Bedside Glucose 137 mg/dL H 70-120 10/03/2017 7:09am 10/03/2017 8:02am Meter ID: [id number] Iron Level 15 ug/dL L 50-170 10/02/2017 5:50am 10/02/2017 11:41am Total Iron Binding Capacity 281 ug/dL 261-478 10/02/2017 5:50am 2017 11:41am Percent Iron Saturation 5 % L 15-50 10/02/2017 5:50am 10/02/2017 11: 41am Transferrin 201 mg/dL 180-382 10/02/2017 5:50am 10/02/2017 11:41am Total Bilirubin 0.4 mg/dL 0.2-1.2 09/30/2017 3:45pm 09/30/2017 4:51pm Aspartate Amino Transf (AST/SGOT) 16 IU/L 5-34 09/30/2017 3:45pm 2017 4:51pm Alanine Aminotransferase (ALT/SGPT) < 6 IU/L 0-55 09/30/2017 3:45pm 08/2017 4:51pm Total Protein 7.8 g/dL 6.5-8.1 09/30/2017 3:45pm 09/30/2017 4:51pm Albumin 2.5 g/dL L 3.5-5.0 09/30/2017 3:45pm 09/30/2017 4:51pm Globulin 5.3 g/dL H 2.3-3.5 09/30/2017 3:45pm 09/30/2017 4:51pm Albumin/Globulin Ratio 0.5 L 0.8-2.0 09/30/2017 3:45pm 09/30/2017 4: 51pm Alkaline Phosphatase 281 IU/L H 40-150 09/30/2017 3:45pm 09/30/2017 4: 51pm B-Type Natriuretic Peptide 974.5 pg/mL H 0-100 09/30/2017 3:45pm 2017 4:59pm Creatine Kinase 38 IU/L 29-168 10/01/2017 9:50am 10/01/2017 10:13am Creatine Kinase MB 1.60 ng/mL 0-5.0 10/01/2017 9:50am 10/01/2017 10: 21am Troponin I 0.008 ng/mL 0-0.300 10/01/2017 9:50am 10/01/2017 10:21am Stool Occult Blood POSITIVE H NEGATIVE 10/02/2017 2:07pm 10/02/2017 2: 37pm Microbiology Results Procedure Source Organism/Result Collection Date/Time Result Date/Time Result Status Blood Culture Blood NO GROWTH AFTER 48 HOURS 7:45pm 10/02/2017 7:48pm Preliminary Wound Culture Buttock JAD ALBICANS-PRESUMPTIVE 10/01/2017 3:30pm 10/03 9:58am Preliminary Procedures Procedure Status Date Provider(s) X-ray of chest, two views Active 12/12/16 WIL RAUSCH MD X-ray of chest, two views Active 09/30/17 AMAURY CHAIDEZ MD X-ray of chest, two views Active 10/02/17 CHYNA IBARRA MD Encounters Encounter Location Arrival/Admit Date Discharge/Depart Date Attending Provider Admitted Inpatient [facility] 09/30/17 6:45pm CHYNA IBARRA MD Discharged Inpatient [facility] 12/12/16 5:21am 12/18/16 5:17pm WIL RAUSCH MD
[2017-10-11] MEDS ORDERED: SODIUM CHLORIDE 0.9% 1000ML 1,000 ML IV STA (12:05)
[2017-10-11] MEDS ORDERED: ASPIRIN 81 MG CHEW TAB PO SCH (12:15)
[2017-10-11] MEDS ORDERED: INSULIN REGULAR, HUMAN 100 UNIT/1 ML 3ML VIAL SQ SCH (12:15)
[2017-10-11] MEDS ORDERED: ENOXAPARIN 30 MG/0.3 ML SYR SC SCH (12:16)
[2017-10-11 12:22] LABS: BASOPHILS # (AUTO) 0.1 (0.0-0.1); BASOPHILS % 0.8 % (0.0-1.0); EOSINOPHILS # (AUTO) 0.3 (0.0-0.4); EOSINOPHILS % 2.7 % (0.0-6.0); HEMATOCRIT 37.6 % (34.2-44.1); HEMOGLOBIN 11.5 g/dL (12.0-16.0); LYMPHOCYTES # (AUTO) 1.1 (1.0-3.2); LYMPHOCYTES % 12.3 % (18.0-39.1); MEAN CORPUSCULAR HEMOGLOBIN 21.5 pg (28-32); MEAN CORPUSCULAR HGB CONC 30.6 g/dL (31-35); MEAN CORPUSCULAR VOLUME 70.1 fL (81-99); MONOCYTES # (AUTO) 0.6 (0.2-0.8); MONOCYTES % 6.4 % (4.4-11.3); NEUTROPHILS # (AUTO) 7.1 (2.1-6.9); NEUTROPHILS % 77.4 % (38.7-80.0); PLATELET COUNT 376 x10e3/uL (140-360); RED BLOOD COUNT 5.36 x10e6/uL (3.6-5.1); RED CELL DISTRIBUTION WIDTH 23.8 % (11.7-14.4)
[2017-10-11] MEDS ORDERED: WARFARIN SOD 2 MG TAB PO SCH ×2 (12:30→15:00)
[2017-10-11 12:39] LABS: ALBUMIN 2.4 g/dL (3.5-5.0); ALBUMIN/GLOBULIN RATIO 0.4 (0.8-2.0); ANION GAP 14.5 mmol/L (8-16); CALCIUM 9.7 mg/dL (8.4-10.2); CREATININE, SERUM 1.73 mg/dL (0.57-1.11); POTASSIUM 4.5 mmol/L (3.5-5.1)
[2017-10-11] MEDS ORDERED: FUROSEMIDE 40 MG TAB PO SCH (12:45)
[2017-10-11] MEDS ORDERED: INSULIN REGULAR, HUMAN 100 UNIT/1 ML 3ML VIAL IV SCH (12:45)
[2017-10-11 12:59] LABS: CREATINE KINASE MB 1.1 ng/mL (0-5.0); THYROID STIMULATING HORMONE 8.922 uIU/mL (0.350-4.940)
[2017-10-11 13:12] LABS: INR 1.02; PARTIAL THROMBOPLASTIN TIME 27.7 seconds (23.8-35.5); PROTHROMBIN TIME 12.6 seconds (11.9-14.5)
[2017-10-11] MEDS ORDERED: CLONIDINE HCL 0.2 MG TAB PO SCH (13:15)
[2017-10-11 13:17] LABS: CLARITY,URINE CLOUDY (CLEAR); COLOR,URINE RED (YELLOW)
[2017-10-11 13:18] LABS: LEUKOCYTE ESTERASE ,URINE NEGATIVE (NEGATIVE); NITRITE,URINE NEGATIVE (NEGATIVE); PROTEIN,URINE DIPSTICK 3+ (NEGATIVE)
[2017-10-11 13:19] LABS: BILIRUBIN,URINE NEGATIVE (NEGATIVE); KETONES,URINE NEGATIVE (NEGATIVE); RBC,URINE >50 /HPF (0-5); URINE UROBILINOGEN 0.2 mg/dL (0.2 - 1)
[2017-10-11 13:20] LABS: EPITHELIAL CELLS,URINE FEW /LPF
--- NOTE | 2017-10-11 14:43 | Diagnostic Imaging Report ---
EXAMINATION: CHEST SINGLE (PORTABLE) INDICATION: \S\ERMD ORDER \S\[id number] \S\1300 \S\Y COMPARISON: 10/02/2017 FINDINGS: AP view TUBES and LINES: None. LUNGS: Lungs are well inflated. Lungs are clear. There is no evidence of pneumonia or pulmonary edema. PLEURA: No pleural effusion or pneumothorax. HEART AND MEDIASTINUM: The cardiomediastinal silhouette is unremarkable. BONES AND SOFT TISSUES: No acute osseous lesion. Soft tissues are unremarkable. UPPER ABDOMEN: No free air under the diaphragm. IMPRESSION: No acute thoracic abnormality. Signed by: DR. Manjinder King MD on 10/11/2017 2:39 PM
[2017-10-11] MEDS ORDERED: WARFARIN SOD 2 MG TAB ONE (15:05)
== END 2017-10-11 15:22 | disposition home or self-care (01) ==
LOC: ER 11:51
DX: R20.8 Other disturbances of skin sensation (principal); E11.65 Type 2 diabetes mellitus with hyperglycemia; Z86.718 Personal history of other venous thrombosis and embolism; I11.0 Hypertensive heart disease with heart failure; I50.9 Heart failure, unspecified; F41.8 Other specified anxiety disorders; K21.9 Gastro-esophageal reflux disease without esophagitis; E78.5 Hyperlipidemia, unspecified; I49.3 Ventricular premature depolarization; Z79.01 Long term (current) use of anticoagulants; Z79.82 Long term (current) use of aspirin; Z79.4 Long term (current) use of insulin; Z91.14 Patient's other noncompliance with medication regimen
CPT/HCPCS: 36415; 71045; 80053; 81001; 82550; 82553; 83880; 84443; 84484; 85025; 85610; 85730; 87086; 93005; 93971; 99284; J1650; J7030

== ENCOUNTER 2019-08-07 14:49 | Emergency (ER) | payer OTHER ==
[~2019-08-07] VITALS: Ht 157.5 cm; Wt 84.8 kg
== END 2019-08-07 15:29 | disposition home or self-care (01) ==
LOC: ER 14:49
DX: E11.621 Type 2 diabetes mellitus with foot ulcer (principal); L97.529 Non-pressure chronic ulcer of other part of left foot with unspecified severity; Z79.4 Long term (current) use of insulin; Z79.01 Long term (current) use of anticoagulants; Z79.82 Long term (current) use of aspirin; I11.0 Hypertensive heart disease with heart failure; I50.9 Heart failure, unspecified; F41.8 Other specified anxiety disorders; E78.5 Hyperlipidemia, unspecified; K21.9 Gastro-esophageal reflux disease without esophagitis; Z86.711 Personal history of pulmonary embolism; Z86.718 Personal history of other venous thrombosis and embolism; Z89.422 Acquired absence of other left toe(s)
CPT/HCPCS: 99282